=== PATIENT | female | born 1945 | race Caucasian/White ===

== ENCOUNTER 2017-12-08 19:37 | Emergency (ER) | payer MEDICARE, OTHER ==
--- NOTE | 2017-12-08 20:07 | ED ---
Complex/Multi-Sys Presentation - HPI Summary HPI Summary: This patient is a 72 year old female presenting to [facility] accompanied by family with a chief complaint of blurry vision since approx. 1 hour ago. Patient states that she was watching TV when she felt strange in a way I never felt before. Patient states she was hit with a sudden episode of blurry vision, severe diaphoresis, and nausea. Patient states that she did not experience any pain during this time. Symptoms aggravated by nothing. Symptoms alleviated by nothing. Patient denies SOB, chest pain. - History Of Current Complaint Chief Complaint: EDGeneral Time Seen by Provider: 12/08/17 19:58 Hx Obtained From: Patient Onset/Duration: Lasting Hours, Resolved Timing: Constant Severity Currently: None Severity Initially: Mild Aggravating Factor(s): N/A Alleviating Factor(s): N/A Associated Signs And Symptoms: Positive: Other - blurry vision, nausea, diaphoresis. Negative: SOB, Chest Pain - Allergies/Home Medications Allergies/Adverse Reactions: Allergies Allergy/AdvReac Type Severity Reaction Status Date / Time Penicillins Allergy Hives Verified 12/08/17 19:47 Home Medications: Home Medications Aspirin 81 mg CHEW TAB* [Aspirin Low Dose TAB*] 81 mg PO DAILY 12/08/17 [ History Confirmed 12/08/17] Atorvastatin* [Lipitor*] 40 mg PO QPM 12/08/17 [History Confirmed 12/08/17] PMH/Surg Hx/FS Hx/Imm Hx Previously Healthy: Yes Cardiovascular History: Reports: Hx Hypertension - ON MEDICATION Musculoskeletal History: Denies: Hx Osteoporosis Opthamlomology History: Denies: Hx Legally Blind EENT History: Denies: Hx Deafness - Cancer History Hx Chemotherapy: No Hx Radiation Therapy: No - Surgical History Surgery Procedure, Year, and Place: LAPAROSCOPY, CSECTION Infectious Disease History: No Infectious Disease History: Denies: Traveled Outside the [place] in Last 30 Days - Family History Known Family History: Positive: Hypertension - Social History Lives: With Family Alcohol Use: None Hx Substance Use: No Substance Use Type: Reports: None Hx Tobacco Use: No Smoking Status (MU): Never Smoked Tobacco Review of Systems Positive: Skin Diaphoresis. Negative: Fever Positive: Blurred Vision Negative: Chest Pain Negative: Shortness Of Breath Positive: Nausea All Other Systems Reviewed And Are Negative: Yes Physical Exam - Summary Physical Exam Summary: Appearance: Well-appearing, Well-nourished, lying in bed comfortably Skin: Warm, dry, no obvious rash Eyes: sclera anicteric, no conjunctival pallor ENT: mucous membranes moist, pharynx appears normal Neck: Supple, nontender Respiratory: Clear to auscultation, no signs of respiratory distress Cardiovascular: Normal S1, S2. No murmurs. Normal distal pulses in tibial and radial bilaterally. Abdomen: Soft, nontender, normal active bowel sounds present Musculoskeletal: Normal, Strength/ROM Intact Neurological: A&Ox3, awake and alert, mentation is normal, speech is fluent and appropriate Psychiatric: affect is normal, does not appear anxious or depressed Triage Information Reviewed: Yes Vital Signs On Initial Exam: Initial Vitals Temp Pulse Resp BP Pulse Ox 97.0 F 69 16 153/56 98 12/08/17 19:42 12/08/17 19:42 12/08/17 19:42 12/08/17 19:42 12/08/17 19:42 Vital Signs Reviewed: Yes Diagnostics - Vital Signs Vital Signs Temp Pulse Resp BP Pulse Ox 12/08/17 19:42 97.0 F 69 16 153/56 98 - Laboratory Result Diagrams: 12/08/17 20:36 12/08/17 20:36 Lab Statement: Any lab studies that have been ordered have been reviewed, and results considered in the medical decision making process. - CT CT Brain CT Interpretation: Positive (See Comments) - CT Brain reveals, per radiologist, IMPRESSION: Mild volume loss and small vessel ischemic changes. Multiple old lacunar infarcts in left basal ganglia, and small lacunar infarct in the anterior limb of left internal capsule. No acute intracranial abnormality. ED physician has reviewed this radiology report. CT Interpretation Completed By: Radiologist - Additional Comments Diagnostic Additional Comments: An EKG, taken 2009, reveals NSR at 71 BPM, P waves, QRS complex, and T waves are within normal limits, T waves and intervals are normal, no ischemic changes. This is a normal EKG Complex Multi-Symp Course/Dx Assessment/Plan: This patient is a 72 year old female presenting to [facility] accompanied by family with a chief complaint of blurry vision since approx. 1 hour ago. Patient states that she was watching TV when she felt strange in a way I never felt before. Patient states she was hit with a sudden episode of blurry vision, severe diaphoresis, and nausea. An EKG, taken 2009, reveals NSR at 71 BPM, P waves, QRS complex, and T waves are within normal limits, T waves and intervals are normal, no ischemic changes. This is a normal EKG. CT Brain reveals, per radiologist, IMPRESSION: Mild volume loss and small vessel ischemic changes. Multiple old lacunar infarcts in left basal ganglia, and small lacunar infarct in the anterior limb of left internal capsule. No acute intracranial abnormality. ED physician has reviewed this radiology report. Bloodwork Obtained. Urinalysis Obtained. Patient will be discharged with a dx of blurry vision. Patient is advised to follow up with PCP in 3 days. The patient is agreeable with this plan. Discharge - Sign-Out/Discharge Documenting (check all that apply): Patient Departure - Discharge Plan Condition: Good Disposition: HOME Patient Education Materials: Blurred Vision (ED) Referrals: Sheldon Urbano MD [Primary Care Provider] - - Attestation Statements Document Initiated by Scribe: Yes Documenting Scribe: Emily Salvador Provider For Whom Scribe is Documenting (Include Credential): Matthew Buckley MD Scribe Attestation: Emily Bae scribed for Matthew Buckley MD on 12/08/17 at 2203.
[2017-12-08 20:47] LABS: ABS Basophils 0.1 10^3/ul (0-0.2); ABS Eosinophils 0.9 10^3/ul (0-0.6); ABS Lymphocytes 0.6 10^3/ul (1.0-4.8); ABS Monocytes 0.4 10^3/ul (0-0.8); ABS Neutrophils 6.6 10^3/ul (1.5-7.7); ABS Nucleated RBC 0 10^3/ul; Eosinophil % 10.1 % (0-6); Hematocrit 32 % (35-47); Hemoglobin 10.7 g/dl (12.0-16.0); Lymphocyte % 6.8 % (25-47); Mean Corpuscular HGB Conc 34 g/dl (31-36); Mean Corpuscular Hemoglobin 30 pg (27-31); Mean Corpuscular Volume 90 fL (80-97); Mean Platelet Volume 8.9 um3 (7.4-10.4); Nucleated Red Blood Cells % 0.1; Platelet Count 208 10^3/ul (150-450); Red Blood Count 3.56 10^6/ul (4.00-5.40); Red Cell Distribution Width 14 % (10.5-15); White Blood Count 8.5 10^3/ul (3.5-10.8)
[2017-12-08 21:03] LABS: EGFR Non-African American 22.7 (>60)
--- NOTE | 2017-12-08 21:34 | RAD ---
EXAM: CT Head Without Intravenous Contrast CLINICAL HISTORY: 72 years old, female; Signs and symptoms; Other: Pt C/O blurry vision, "feeling strange in a way i never felt before" reports diaphoresis. Denies any pain at this time. Pt not able describe the "feeling strange"; Additional info: Head injury TECHNIQUE: Axial computed tomography images of the head/brain without intravenous contrast. All CT scans at this facility use at least one of these dose optimization techniques: automated exposure control; mA and/or kV adjustment per patient size (includes targeted exams where dose is matched to clinical indication); or iterative reconstruction. COMPARISON: No relevant prior studies available. FINDINGS: Brain: There is no acute intracranial abnormality. Mild prominence of ventricles and sulci representing volume loss. Mild small vessel ischemic changes are seen. There is no mass, midline shift, or mass effect. Moore-white matter differentiation is preserved. There is no evidence of hemorrhage. There is no extra-axial fluid collection. Basal cisterns are patent. Multiple old lacunar infarcts in left basal ganglia, and small lacunar infarct in the anterior limb of left internal capsule. Bones/joints: The visualized osseous structures are unremarkable. No acute fracture. Soft tissues: Unremarkable. Sinuses: Visualized sinuses are clear. Mastoid air cells: Mastoid air cells are clear. IMPRESSION: Mild volume loss and small vessel ischemic changes. Multiple old lacunar infarcts in left basal ganglia, and small lacunar infarct in the anterior limb of left internal capsule. No acute intracranial abnormality. To contact [facility] with a general question: [facility] - [phone] For direct physician to physician contact: Physician Hotline - [phone] [facility] ([facility] Facility ID #[id number])
[2017-12-08 23:28] VITALS: BP 147/69
== END 2017-12-08 23:29 | disposition home or self-care (01) ==
LOC: ED 19:37
DX: H53.8 Other visual disturbances (principal); R11.0 Nausea; Z88.0 Allergy status to penicillin; I10 Essential (primary) hypertension
CPT/HCPCS: 36415; 70450; 80053; 84484; 85025; 93005; 99283

== ENCOUNTER 2020-02-29 23:11 | Observation (INO) ==
[2020-02-29] MEDS ORDERED: Ondansetron 4 mg VIAL 2 MG/ML 2 ml VIAL IV ONE (23:25)
[2020-02-29] MEDS ORDERED: NS 0.9% 1000 ml BAG 1,000 ML IV ONE (23:25)
[2020-03-01 00:48] LABS: ABS Eosinophils 0.7 10^3/ul (0-0.6); ABS Lymphocytes 0.5 10^3/ul (1.0-4.8); ABS Monocytes 0.6 10^3/ul (0-0.8); ABS Neutrophils 5.5 10^3/ul (1.5-7.7); Eosinophil % 9.2 %; Hematocrit 30 % (35-47); Hemoglobin 10.2 g/dL (12.0-16.0); Lymphocyte % 6.9 %; Mean Corpuscular HGB Conc 34 g/dL (31-36); Mean Corpuscular Hemoglobin 32 pg (27-31); Mean Corpuscular Volume 94 fL (80-97); Mean Platelet Volume 8.5 fL (7.4-10.4); Platelet Count 140 10^3/uL (150-450); Red Blood Count 3.21 10^6 /uL (3.70-4.87); Red Cell Distribution Width 18 % (10-15); White Blood Count 7.3 10^3/uL (3.5-10.8)
[2020-03-01 00:54] LABS: INR 1.07 (0.82-1.09)
[2020-03-01 01:13] LABS: Troponin I 0.01 ng/mL (<0.03)
[2020-03-01 01:27] LABS: TSH Ultra Thyroid Stim Horm 1.78 mcIU/mL (0.34-5.60)
[2020-03-01 01:45] LABS: Albumin 3.6 g/dL (3.2-5.2); Calcium 9.6 mg/dL (8.6-10.3); Magnesium 2.3 mg/dL (1.9-2.7); Potassium 3.6 mmol/L (3.5-5.0); Total Bilirubin 0.3 mg/dL (0.2-1.0)
[2020-03-01 01:51] LABS: Albumin/Globulin Ratio 1.5 (1-3); BUN/Creatinine Ratio 26.9 (8-20); EGFR African American 18.8 (>60); EGFR Non-African American 15.5 (>60); Globulin 2.4 g/dL (2-4)
[2020-03-01 01:53] LABS: Urine Appearance Clear; Urine Bilirubin Negative (Negative); Urine Blood Negative (Negative); Urine Color Straw; Urine Glucose 1+(50 mg/dL) (Negative); Urine Ketones Negative (Negative); Urine Nitrite Negative (Negative); Urine Protein 2+(100 mg/dL) (Negative); Urine Specific Gravity 1.009 (1.010-1.030); Urine Urobilinogen Negative (Negative)
[2020-03-01 01:56] LABS: Urine Bacteria Absent (Absent); Urine Red Blood Cell Absent (Absent); Urine Squamous Epithelial Cell Present (Absent); Urine White Blood Cell Trace(0-5/hpf) (Absent)
[2020-03-01 02:03] LABS: Urine Benzodiazepine Screen None Detected (None Detect); Urine Cannabinoids Screen None Detected (None Detect); Urine Opiates Screen None Detected (None Detect)
[2020-03-01] MEDS ORDERED: NS 0.9% 500 ml BAG 500 ML IV ONE (07:45)
[2020-03-01] MEDS: Calcium (OSCAL) 500 mg TAB PO SCH ×2 (09:53→21:04)
[2020-03-01] MEDS ORDERED: LENALIDOMIDE 2.5 MG PO SCH (21:00)
[2020-03-01] MEDS ORDERED: Cholecalciferol (VIT D3) 1,000 unit TAB PO SCH (21:00)
[2020-03-02 08:26] VITALS: BP 144/58
[2020-03-02] MEDS: Calcium (OSCAL) 500 mg TAB PO SCH (08:54)
== END 2020-03-02 11:10 | disposition home or self-care (01) ==
LOC: MEDTELE 23:11 → ED 23:11 → EDHOLD 23:11
PROVIDERS: ADMIT Student in an Organized Health Care Education/Training Program; ATTEND Internal Medicine

== ENCOUNTER 2022-11-27 10:56 | Inpatient (IN) ==
[2022-11-27 13:26] LABS: ABS Lymphocytes 0.3 10^3/uL (1.0-4.8); ABS Monocytes 0.3 10^3/uL (0.0-0.9); ABS Neutrophils 4.4 10^3/uL (1.5-7.6); ABS Nucleated RBC 0.01 10^3/ul; Eosinophil % 0.6 %; Hematocrit 29.6 % (35-45); Hemoglobin 9.9 g/dL (11.5-14.3); Lymphocyte % 5.3 %; Mean Corpuscular Hemoglobin 30.5 pg (27-33); Mean Corpuscular Hgb Conc 33.6 g/dL (31-36); Mean Corpuscular Volume 90.9 fL (80-97); Mean Platelet Volume 9.4 fL (7.5-11.2); Nucleated Red Blood Cells % 0.1 /100 WBC (0.0-0.4); Platelet Count 188 10^3/uL (150-450); Red Blood Count 3.25 10^6/uL (3.63-4.92); Red Cell Distribution Width 17.3 % (12-17); White Blood Count 5.1 10^3/uL (3.8-11.8)
[2022-11-27 13:45] LABS: Albumin 3.9 g/dL (3.2-5.2); Albumin/Globulin Ratio 1.4 (1-3); Calcium 8.9 mg/dL (8.6-10.3); Creatinine, Serum 2.58 mg/dL (0.51-0.95); Globulin 2.8 g/dL (2-4); Magnesium 1.8 mg/dL (1.9-2.7); Potassium 4.2 mmol/L (3.5-5.0); Total Bilirubin 0.5 mg/dL (0.2-1.0); Total Protein 6.7 g/dL (6.4-8.9); eGFR CKD-EPI 18.8 (>60)
[2022-11-27 14:56] LABS: High Sensitivity Troponin 1 Hr 17 pg/mL (<15)
[2022-11-27] MEDS ORDERED: Morphine 2 MG/ML SYRINGE IV PRN (15:42)
[2022-11-27] MEDS: Enoxaparin 40 MG/0.4 ML SYR SUBCUT SCH ×3 (16:18→21:26)
[2022-11-27] MEDS: Acetaminophen IV 1 GM/100ML 1,000 MG/100 ML BAG IV SCH (19:41)
[2022-11-27] MEDS ORDERED: Calcium (OSCAL) 500 mg TAB PO SCH (21:00)
[2022-11-27] MEDS: Calcium (OSCAL) 500 mg TAB PO SCH (21:27)
[2022-11-27] MEDS: Cholecalciferol (VIT D3) 1,000 unit TAB PO SCH (21:28)
[2022-11-27] MEDS: DULoxetine DR 30 mg CAP PO SCH (21:28)
[2022-11-27] MEDS: LENALIDOMIDE 2.5 MG PO SCH (21:29)
[2022-11-27] MEDS: Potassium Chlor 10 meq TAB PO SCH (21:29)
[2022-11-28] MEDS: Acetaminophen IV 1 GM/100ML 1,000 MG/100 ML BAG IV SCH ×3 (00:33→18:06)
[2022-11-28 05:35] LABS: INR 1.16 (0.83-1.13)
[2022-11-28 05:38] LABS: Hematocrit 27.4 % (35-45); Hemoglobin 9.4 g/dL (11.5-14.3); Mean Corpuscular Hemoglobin 30.8 pg (27-33); Mean Corpuscular Hgb Conc 34.3 g/dL (31-36); Mean Corpuscular Volume 89.9 fL (80-97); Platelet Count 154 10^3/uL (150-450); Red Blood Count 3.05 10^6/uL (3.63-4.92); Red Cell Distribution Width 17.2 % (12-17); White Blood Count 3.7 10^3/uL (3.8-11.8)
[2022-11-28 05:45] LABS: Albumin 3.4 g/dL (3.2-5.2); Albumin/Globulin Ratio 1.3 (1-3); Creatinine, Serum 2.8 mg/dL (0.51-0.95); Globulin 2.6 g/dL (2-4); Magnesium 1.8 mg/dL (1.9-2.7); Potassium 3.7 mmol/L (3.5-5.0); Total Bilirubin 0.4 mg/dL (0.2-1.0); eGFR CKD-EPI 17.1 (>60)
[2022-11-28 06:09] LABS: ABS Eosinophils 0.5 10^3/uL (0.0-0.5); ABS Lymphocytes 0.1 10^3/uL (1.0-4.8); ABS Monocytes 0.3 10^3/uL (0.0-0.9); ABS Neutrophils 2.6 10^3/uL (1.5-7.6); Eosinophil % 14.6 %; Lymphocyte % 3.8 %; Nucleated Red Blood Cells % 0.1 /100 WBC (0.0-0.4)
[2022-11-28] MEDS: Calcium (OSCAL) 500 mg TAB PO SCH ×2 (11:22→21:23)
[2022-11-28] MEDS: Potassium Chlor 10 meq TAB PO SCH ×2 (11:22→21:23)
[2022-11-28] MEDS: Cholecalciferol (VIT D3) 1,000 unit TAB PO SCH (21:23)
[2022-11-28] MEDS: LENALIDOMIDE 2.5 MG PO SCH (21:23)
[2022-11-28] MEDS: DULoxetine DR 30 mg CAP PO SCH (21:23)
[2022-11-28] MEDS: Enoxaparin 40 MG/0.4 ML SYR SUBCUT SCH (21:24)
[2022-11-29] MEDS: Acetaminophen IV 1 GM/100ML 1,000 MG/100 ML BAG IV SCH ×3 (01:53→19:56)
[2022-11-29] MEDS: Potassium Chlor 10 meq TAB PO SCH ×2 (08:29→21:12)
[2022-11-29] MEDS ORDERED: Influenza vaccine *QUAD* *2023-24* 0.5 ML SYRINGE IM ONE (09:00)
[2022-11-29 09:06] LABS: Hematocrit 26.5 % (35-45); Hemoglobin 9.1 g/dL (11.5-14.3); Mean Corpuscular Hemoglobin 31.1 pg (27-33); Mean Corpuscular Hgb Conc 34.3 g/dL (31-36); Mean Corpuscular Volume 90.7 fL (80-97); Mean Platelet Volume 9.8 fL (7.5-11.2); Platelet Count 169 10^3/uL (150-450); Red Blood Count 2.93 10^6/uL (3.63-4.92); Red Cell Distribution Width 17.6 % (12-17); White Blood Count 3.7 10^3/uL (3.8-11.8)
[2022-11-29 09:22] LABS: Albumin 3.2 g/dL (3.2-5.2); Albumin/Globulin Ratio 1.5 (1-3); Calcium 8.4 mg/dL (8.6-10.3); Creatinine, Serum 2.71 mg/dL (0.51-0.95); Globulin 2.2 g/dL (2-4); Potassium 3.9 mmol/L (3.5-5.0); Total Bilirubin 0.4 mg/dL (0.2-1.0); Total Protein 5.4 g/dL (6.4-8.9); eGFR CKD-EPI 17.8 (>60)
[2022-11-29] MEDS: Calcium (OSCAL) 500 mg TAB PO SCH ×2 (11:32→21:11)
[2022-11-29] MEDS: NS 0.9% 1000 ml BAG 1,000 ML IV SCH (11:42)
[2022-11-29] MEDS ORDERED: Lidocaine 1% w EPI 1:100,000 MDV 20 ML VIAL ONE (13:46)
[2022-11-29] MEDS ORDERED: Neomycin/Polym/Bacit TOP OINT 15 GM ONE (13:47)
[2022-11-29] MEDS ORDERED: Phenylephrine IV 10 MG/ML 1 ml VIAL ONE (14:40)
[2022-11-29] MEDS ORDERED: fentaNYL 100 mcg/2 ml 50 MCG/ML VIAL ONE (14:49)
[2022-11-29] MEDS ORDERED: Dexamethasone IV 4 MG/ML VIAL 1 ml VIAL ONE (14:57)
[2022-11-29] MEDS ORDERED: Ondansetron 4 mg VIAL 2 MG/ML 2 ml VIAL ONE (14:57)
[2022-11-29] MEDS ORDERED: ceFAZolin VIAL VIAL ONE (14:59)
[2022-11-29] MEDS ORDERED: Polyethylene Glycol 3350 17 GM PACKET PO PRN (16:17)
[2022-11-29] MEDS ORDERED: Morphine 2 MG/ML SYRINGE IV PRN (16:17)
[2022-11-29] MEDS ORDERED: Senna TAB 8.6 mg TAB PO PRN (16:17)
[2022-11-29] MEDS ORDERED: Magnesium Hydroxide LIQ 30 ML UDC PO PRN (16:17)
[2022-11-29 17:56] LABS: Hematocrit 29.1 % (35-45); Hemoglobin 9.5 g/dL (11.5-14.3)
[2022-11-29 18:56] LABS: Albumin 3.4 g/dL (3.2-5.2); Calcium 8.5 mg/dL (8.6-10.3); Potassium 4.6 mmol/L (3.5-5.0); Total Bilirubin 0.4 mg/dL (0.2-1.0)
[2022-11-29 19:02] LABS: Albumin/Globulin Ratio 1.6 (1-3); Creatinine, Serum 2.84 mg/dL (0.51-0.95); Globulin 2.1 g/dL (2-4); Total Protein 5.5 g/dL (6.4-8.9); eGFR CKD-EPI 16.8 (>60)
[2022-11-29] MEDS: ceFAZolin 1 GM ADVAN 1 GM in NS 0.9% 50 ML 50 ML IVPB SCH (20:25)
[2022-11-29] MEDS: Magnesium Hydroxide LIQ 30 ML UDC PO SCH (21:07)
[2022-11-29] MEDS: Cholecalciferol (VIT D3) 1,000 unit TAB PO SCH (21:11)
[2022-11-29] MEDS: DULoxetine DR 30 mg CAP PO SCH (21:11)
[2022-11-29] MEDS: LENALIDOMIDE 2.5 MG PO SCH (21:12)
[2022-11-30] MEDS: ceFAZolin 1 GM ADVAN 1 GM in NS 0.9% 50 ML 50 ML IVPB SCH ×2 (02:38→09:54)
[2022-11-30] MEDS: Acetaminophen IV 1 GM/100ML 1,000 MG/100 ML BAG IV SCH ×4 (02:38→20:24)
[2022-11-30 08:22] LABS: Calcium 8.6 mg/dL (8.6-10.3); Creatinine, Serum 2.9 mg/dL (0.51-0.95); Magnesium 1.9 mg/dL (1.9-2.7); Potassium 4.2 mmol/L (3.5-5.0); eGFR CKD-EPI 16.4 (>60)
[2022-11-30 08:28] LABS: ABS Eosinophils 0.2 10^3/uL (0.0-0.5); ABS Lymphocytes 0.2 10^3/uL (1.0-4.8); ABS Monocytes 0.4 10^3/uL (0.0-0.9); ABS Neutrophils 3.4 10^3/uL (1.5-7.6); ABS Nucleated RBC 0.01 10^3/ul; Eosinophil % 4.8 %; Hematocrit 24.8 % (35-45); Hemoglobin 8.5 g/dL (11.5-14.3); Mean Corpuscular Hemoglobin 30.8 pg (27-33); Mean Corpuscular Hgb Conc 34.3 g/dL (31-36); Mean Platelet Volume 9.7 fL (7.5-11.2); Nucleated Red Blood Cells % 0.1 /100 WBC (0.0-0.4); Platelet Count 143 10^3/uL (150-450); Red Blood Count 2.76 10^6/uL (3.63-4.92); Red Cell Distribution Width 17.2 % (12-17); White Blood Count 4.1 10^3/uL (3.8-11.8)
[2022-11-30] MEDS: Calcium (OSCAL) 500 mg TAB PO SCH ×2 (08:35→20:25)
[2022-11-30] MEDS: Potassium Chlor 10 meq TAB PO SCH ×2 (08:36→20:25)
[2022-11-30] MEDS: Magnesium Hydroxide LIQ 30 ML UDC PO SCH (08:37)
[2022-11-30] MEDS ORDERED: Influenza vaccine *QUAD* *2023-24* 0.5 ML SYRINGE IM ONE (09:00)
[2022-11-30] MEDS: NUT TX IMP RENAL FXN LAC REDUC PO SCH (09:54)
[2022-11-30] MEDS: [UNRECOGNIZED DRUG - OTHER] PO SCH (09:54)
[2022-11-30] MEDS: NS 0.9% 1000 ml BAG 1,000 ML IV SCH (10:55)
[2022-11-30] MEDS ORDERED: Lactated Ringers 1000 ml BAG 1,000 ML IV SCH (13:00)
[2022-11-30 15:24] LABS: Ferritin 208.4 ng/mL (11-307)
[2022-11-30 15:28] LABS: Folate 17.62 ng/mL (5.90-24.80)
[2022-11-30] MEDS: LENALIDOMIDE 2.5 MG PO SCH (20:24)
[2022-11-30] MEDS: Cholecalciferol (VIT D3) 1,000 unit TAB PO SCH (20:25)
[2022-11-30] MEDS: DULoxetine DR 30 mg CAP PO SCH (20:25)
[2022-12-01] MEDS: Acetaminophen IV 1 GM/100ML 1,000 MG/100 ML BAG IV SCH ×3 (04:26→20:22)
[2022-12-01 05:49] LABS: ABS Eosinophils 1.1 10^3/uL (0.0-0.5); ABS Lymphocytes 0.1 10^3/uL (1.0-4.8); ABS Monocytes 0.2 10^3/uL (0.0-0.9); ABS Neutrophils 2.3 10^3/uL (1.5-7.6); ABS Nucleated RBC 0.01 10^3/ul; Eosinophil % 28.3 %; Hematocrit 23.6 % (35-45); Lymphocyte % 3.3 %; Mean Corpuscular Hemoglobin 30.6 pg (27-33); Mean Corpuscular Hgb Conc 33.7 g/dL (31-36); Mean Corpuscular Volume 90.7 fL (80-97); Mean Platelet Volume 9.2 fL (7.5-11.2); Nucleated Red Blood Cells % 0.3 /100 WBC (0.0-0.4); Platelet Count 124 10^3/uL (150-450); Red Cell Distribution Width 17.4 % (12-17); White Blood Count 3.8 10^3/uL (3.8-11.8)
[2022-12-01 06:07] LABS: Calcium 8.4 mg/dL (8.6-10.3); Creatinine, Serum 2.88 mg/dL (0.51-0.95); Magnesium 1.8 mg/dL (1.9-2.7); Potassium 3.9 mmol/L (3.5-5.0); eGFR CKD-EPI 16.5 (>60)
[2022-12-01] MEDS ORDERED: Magnesium Sulfate IV 3 GM in NS 0.9% 100 ml BAG 100 ML IVPB ONE (07:54)
[2022-12-01] MEDS: [UNRECOGNIZED DRUG - OTHER] PO SCH (09:00)
[2022-12-01] MEDS: NUT TX IMP RENAL FXN LAC REDUC PO SCH (09:00)
[2022-12-01] MEDS: Calcium (OSCAL) 500 mg TAB PO SCH ×2 (09:01→20:24)
[2022-12-01] MEDS: Potassium Chlor 10 meq TAB PO SCH ×2 (09:01→20:25)
[2022-12-01] MEDS ORDERED: Lactated Ringers 1000 ml BAG 1,000 ML IV ONE (10:14)
[2022-12-01] MEDS: LENALIDOMIDE 2.5 MG PO SCH (20:25)
[2022-12-01] MEDS: Cholecalciferol (VIT D3) 1,000 unit TAB PO SCH (20:25)
[2022-12-01] MEDS: DULoxetine DR 30 mg CAP PO SCH (20:25)
[2022-12-02] MEDS: Acetaminophen IV 1 GM/100ML 1,000 MG/100 ML BAG IV SCH ×2 (04:03→12:12)
[2022-12-02 06:00] LABS: Hematocrit 21.3 % (35-45); Hemoglobin 7.3 g/dL (11.5-14.3); Mean Corpuscular Hemoglobin 30.9 pg (27-33); Mean Corpuscular Hgb Conc 34.1 g/dL (31-36); Mean Corpuscular Volume 90.5 fL (80-97); Mean Platelet Volume 9.4 fL (7.5-11.2); Platelet Count 116 10^3/uL (150-450); Red Blood Count 2.35 10^6/uL (3.63-4.92); Red Cell Distribution Width 17.3 % (12-17); White Blood Count 3.4 10^3/uL (3.8-11.8)
[2022-12-02 06:13] LABS: Creatinine, Serum 2.82 mg/dL (0.51-0.95); Magnesium 2.4 mg/dL (1.9-2.7); Potassium 4.1 mmol/L (3.5-5.0); eGFR CKD-EPI 16.9 (>60)
[2022-12-02] MEDS: Calcium (OSCAL) 500 mg TAB PO SCH ×2 (08:04→20:32)
[2022-12-02] MEDS: Potassium Chlor 10 meq TAB PO SCH ×2 (08:05→20:32)
[2022-12-02] MEDS: [UNRECOGNIZED DRUG - OTHER] PO SCH (08:10)
[2022-12-02] MEDS: NUT TX IMP RENAL FXN LAC REDUC PO SCH (08:10)
[2022-12-02 08:18] LABS: ABS Eosinophils 0.8 10^3/uL (0.0-0.5); ABS Lymphocytes 0.2 10^3/uL (1.0-4.8); ABS Monocytes 0.3 10^3/uL (0.0-0.9); ABS Neutrophils 2.2 10^3/uL (1.5-7.6); ABS Nucleated RBC 0.01 10^3/ul; Eosinophil % 22.9 %; Lymphocyte % 5.2 %; Nucleated Red Blood Cells % 0.2 /100 WBC (0.0-0.4)
[2022-12-02] MEDS: Cholecalciferol (VIT D3) 1,000 unit TAB PO SCH (20:31)
[2022-12-02] MEDS: LENALIDOMIDE 2.5 MG PO SCH (20:32)
[2022-12-02] MEDS: DULoxetine DR 30 mg CAP PO SCH (20:32)
[2022-12-03 06:46] LABS: Calcium 8.3 mg/dL (8.6-10.3); Creatinine, Serum 2.34 mg/dL (0.51-0.95); Potassium 3.9 mmol/L (3.5-5.0); eGFR CKD-EPI 21.2 (>60)
[2022-12-03 08:07] LABS: Hematocrit 22.4 % (35-45); Hemoglobin 7.5 g/dL (11.5-14.3); Mean Corpuscular Hemoglobin 30.5 pg (27-33); Mean Corpuscular Hgb Conc 33.6 g/dL (31-36); Mean Corpuscular Volume 90.7 fL (80-97); Mean Platelet Volume 9.7 fL (7.5-11.2); Platelet Count 131 10^3/uL (150-450); Red Blood Count 2.47 10^6/uL (3.63-4.92); Red Cell Distribution Width 17.8 % (12-17); White Blood Count 3.8 10^3/uL (3.8-11.8)
[2022-12-03 08:31] LABS: ABS Eosinophils 0.6 10^3/uL (0.0-0.5); ABS Lymphocytes 0.2 10^3/uL (1.0-4.8); ABS Monocytes 0.3 10^3/uL (0.0-0.9); ABS Neutrophils 2.7 10^3/uL (1.5-7.6); ABS Nucleated RBC 0.01 10^3/ul; Eosinophil % 15.5 %; Lymphocyte % 4.6 %; Nucleated Red Blood Cells % 0.2 /100 WBC (0.0-0.4)
[2022-12-03] MEDS: Calcium (OSCAL) 500 mg TAB PO SCH ×2 (09:27→20:50)
[2022-12-03] MEDS: Potassium Chlor 10 meq TAB PO SCH ×2 (09:27→20:49)
[2022-12-03] MEDS: [UNRECOGNIZED DRUG - OTHER] PO SCH (11:27)
[2022-12-03] MEDS: NUT TX IMP RENAL FXN LAC REDUC PO SCH (11:27)
[2022-12-03] MEDS: LENALIDOMIDE 2.5 MG PO SCH (20:49)
[2022-12-03] MEDS: Cholecalciferol (VIT D3) 1,000 unit TAB PO SCH (20:50)
[2022-12-03] MEDS: DULoxetine DR 30 mg CAP PO SCH (20:51)
[2022-12-04] MEDS: Calcium (OSCAL) 500 mg TAB PO SCH (07:49)
[2022-12-04] MEDS: Potassium Chlor 10 meq TAB PO SCH (07:51)
[2022-12-04] MEDS: [UNRECOGNIZED DRUG - OTHER] PO SCH (07:52)
[2022-12-04] MEDS: NUT TX IMP RENAL FXN LAC REDUC PO SCH (07:52)
[2022-12-04 09:47] VITALS: BP 106/65
== END 2022-12-04 11:00 | DRG 481 ==
LOC: ED 10:56 → EDHOLD 14:47 → SUATTDRO 14:47 → SSU 14:47 → MEDTELE 11-28 09:39 → SSU 11-29 17:43
PROVIDERS: ADMIT Hospitalist; ATTEND Internal Medicine